=== PATIENT | male | born 1945 | race Hispanic/Latino ===

== ENCOUNTER 2018-11-15 08:05 | Day surgery (SDC) | payer OTHER ==
[2018-11-12 16:01] VITALS: BP 93/61
[2018-11-12 16:05] LABS: BASOPHILS % (AUTO) 0.5 % (0.0-5.0); EOSINOPHILS % (AUTO) 1.3 % (0.0-8.0); HEMATOCRIT 36.7 % (42-54); LYMPHOCYTES % (AUTO) 24.1 % (21.0-51.0); MEAN CORPUSCULAR HEMOGLOBIN 26.3 pg (27.0-33.0); MEAN CORPUSCULAR HGB CONC 32.9 g/dL (32.0-36.0); MEAN CORPUSCULAR VOLUME 79.8 fL (79-99); MONOCYTES % (AUTO) 8.4 % (3.0-13.0); NEUTROPHILS % (AUTO) 65.7 % (40.0-77.0); PLATELET COUNT (AUTO) 205 K/uL (130-400); RED CELL DISTRIBUTION WIDTH 15.1 % (11.0-15.5); WHITE BLOOD COUNT (AUTO) 5.3 K/uL (4.8-10.8)
[2018-11-12 16:18] LABS: ALBUMIN 3.6 g/dL (3.5-5.0); BILIRUBIN,TOTAL 0.4 mg/dL (0.2-1.0); CREATININE 1.1 mg/dL (0.5-1.5); INR 0.99 (0.85-1.15); PARTIAL THROMBOPLASTIN TIME 27.6 SEC (26.3-35.5); POTASSIUM 4.2 mmol/L (3.5-5.1); PROTHROMBIN TIME 10.4 SEC (9.6-11.6); TOTAL PROTEIN, SERUM 7.5 g/dL (6.0-8.3)
[~2018-11-15] VITALS: Ht 177.8 cm; Wt 87.6 kg
[2018-11-15] VITALS (11 sets, daily range): BP systolic 102–132; BP diastolic 64–90
[~2018-11-15 08:05] MED LIST: CEFAZOLIN SODIUM 1 GM VIAL IVP ONE; SODIUM CHLORIDE 0.9% 1000ML 1,000 ML IV SCH
[2018-11-15] MEDS ORDERED: FAMO-136 PO (09:01)
[2018-11-15] MEDS ORDERED: LISI-613 PO (09:01)
--- NOTE | 2018-11-15 09:03 | NUR ---
POTENTIAL FOR INFECTION: SHAVED UPPER CHEST TO BILATERAL NIPPLE AREA PER KELSEA BORDEN.
[2018-11-15] MEDS ORDERED: CEFAZOLIN SODIUM 1 GM VIAL ONE (09:13)
[2018-11-15] MEDS ORDERED: LACTATED RINGERS 1000ML 1,000 ML IV ONE (09:13)
[2018-11-15] MEDS ORDERED: MIDAZOLAM HCL 1 MG/ML 2ML VIAL ONE ×2 (09:25→09:28)
[2018-11-15] MEDS ORDERED: FENTANYL CITRATE PF 50 MCG/1 ML 2ML VIAL ONE (09:25)
[2018-11-15] MEDS ORDERED: BUPIVACAINE/PF 0.25% 30ML VIAL IJ ONE (09:30)
[2018-11-15] MEDS ORDERED: LIDOCAINE HCL 1% 20 ML VIAL ONE (09:30)
== END 2018-11-15 11:30 | disposition home or self-care (01) ==
LOC: DAH 08:05
PROVIDERS: ATTEND Student in an Organized Health Care Education/Training Program
DX: C18.6 Malignant neoplasm of descending colon (principal); Z93.3 Colostomy status; I10 Essential (primary) hypertension; R06.83 Snoring; Z79.01 Long term (current) use of anticoagulants; Z98.890 Other specified postprocedural states
CPT/HCPCS: 36415; 36561; 71045; 77001; 80053; 85025; 85610; 85730; 93005; A4215; A4221; A4222; A4223; A4606; A4663; A4930; A6207; C1788; J0690; J1644; J2250 ×2; J3010; J3490; J7120

== ENCOUNTER 2020-05-19 15:20 | Emergency (ER) | payer MEDICARE ==
[~2020-05-19 15:20] MED LIST changes: -CEFAZOLIN SODIUM 1 GM VIAL IVP ONE; +LISI10TA24 PO; -SODIUM CHLORIDE 0.9% 1000ML 1,000 ML IV SCH
[2020-05-19 15:36] LABS: BASOPHILS % (AUTO) 0.2 % (0.0-5.0); EOSINOPHILS % (AUTO) 0.2 % (0.0-8.0); HEMATOCRIT 41.8 % (42-54); LYMPHOCYTES % (AUTO) 12.7 % (21.0-51.0); MEAN CORPUSCULAR HEMOGLOBIN 28.5 pg (27.0-33.0); MEAN CORPUSCULAR HGB CONC 33.3 g/dL (32.0-36.0); MEAN CORPUSCULAR VOLUME 85.7 fL (79-99); MONOCYTES % (AUTO) 2.5 % (3.0-13.0); NEUTROPHILS % (AUTO) 84.2 % (40.0-77.0); PLATELET COUNT (AUTO) 206 K/uL (130-400); RED BLOOD CELL COUNT(AUTO) 4.88 MIL/uL (4.50-6.20); RED CELL DISTRIBUTION WIDTH 13.9 % (11.0-15.5); WHITE BLOOD COUNT (AUTO) 6.5 K/uL (4.8-10.8)
[2020-05-19 15:47] LABS: CREATININE 0.9 mg/dL (0.5-1.5); POTASSIUM 3.7 mmol/L (3.5-5.1)
[2020-05-19 15:49] LABS: INR 1.05 (0.85-1.15); PROTHROMBIN TIME 11.4 SEC (9.6-11.6)
[2020-05-19 15:50] LABS: PARTIAL THROMBOPLASTIN TIME 27.7 SEC (26.3-35.5)
[2020-05-19 15:51] LABS: ALBUMIN 3.4 g/dL (3.5-5.0); BILIRUBIN,TOTAL 0.6 mg/dL (0.2-1.0); TOTAL PROTEIN, SERUM 7.3 g/dL (6.0-8.3)
[2020-05-19 15:59] LABS: CREATINE KINASE, TOTAL 98 U/L (21-232); MYOGLOBIN 96 ng/mL (10-92); TROPONIN I < 0.04 ng/mL (0.00-0.06)
[2020-05-19] MEDS ORDERED: FAMOTIDINE 20MG TAB ONE (17:12)
[2020-05-19] MEDS ORDERED: 0.9%NACL 1000ML 1,000 ML IV ONE (17:30)
[2020-05-19] MEDS ORDERED: IOHEXOL-350 75 ML VIAL IV ONE (17:52)
== END 2020-05-19 19:31 | disposition home or self-care (01) ==
LOC: EDH 15:20
DX: R07.89 Other chest pain (principal); R06.6 Hiccough; C18.9 Malignant neoplasm of colon, unspecified; E86.0 Dehydration; I10 Essential (primary) hypertension; Z72.0 Tobacco use; Z79.899 Other long term (current) drug therapy
CPT/HCPCS: 36415; 71045; 71275; 80053; 82550; 83874; 84484 ×2; 85025; 85610; 85730; 93005 ×2; 96360; 96361; 99285; J7030; Q9967

== ENCOUNTER 2020-05-23 20:40 | Observation (INO) | payer MEDICARE ==
[~2020-05-23] VITALS: Ht 180.3 cm; Wt 79.4 kg
[2020-05-23] MEDS ORDERED: ONDANSETRON HCL 4 MG/2 ML VIAL ONE (20:52)
[2020-05-23 21:12] LABS: BASOPHILS % (AUTO) 0.2 % (0.0-5.0); EOSINOPHILS % (AUTO) 0.2 % (0.0-8.0); HEMATOCRIT 42.1 % (42-54); LYMPHOCYTES % (AUTO) 10.4 % (21.0-51.0); MEAN CORPUSCULAR HEMOGLOBIN 27.5 pg (27.0-33.0); MEAN CORPUSCULAR HGB CONC 32.5 g/dL (32.0-36.0); MEAN CORPUSCULAR VOLUME 84.4 fL (79-99); MONOCYTES % (AUTO) 3.2 % (3.0-13.0); NEUTROPHILS % (AUTO) 85.2 % (40.0-77.0); PLATELET COUNT (AUTO) 194 K/uL (130-400); RED BLOOD CELL COUNT(AUTO) 4.99 MIL/uL (4.50-6.20); RED CELL DISTRIBUTION WIDTH 13.6 % (11.0-15.5); WHITE BLOOD COUNT (AUTO) 6.5 K/uL (4.8-10.8)
[2020-05-23 21:25] LABS: INR 1.15 (0.85-1.15); PROTHROMBIN TIME 12.4 SEC (9.6-11.6)
[2020-05-23 21:27] LABS: PARTIAL THROMBOPLASTIN TIME 27.6 SEC (26.3-35.5)
[2020-05-23 21:29] LABS: CREATININE 0.8 mg/dL (0.5-1.5); POTASSIUM 3.5 mmol/L (3.5-5.1)
[2020-05-23] MEDS ORDERED: SODIUM CHLORIDE 0.9% 1000ML 1,000 ML IV ONE (21:31)
[2020-05-23 21:33] LABS: ALBUMIN 3.5 g/dL (3.5-5.0); BILIRUBIN,TOTAL 0.6 mg/dL (0.2-1.0); TOTAL PROTEIN, SERUM 7.6 g/dL (6.0-8.3)
[2020-05-23] MEDS ORDERED: NITROGLYCERIN 1GM/1 INCH PACKET TD ONE (22:08)
[2020-05-24 00:31] LABS: CREATINE KINASE, TOTAL 33 U/L (21-232); MYOGLOBIN 32 ng/mL (10-92); TROPONIN I < 0.04 ng/mL (0.00-0.06)
[2020-05-24] MEDS: SODIUM CHLORIDE 0.9% 1000ML 1,000 ML IV SCH ×4 (01:45→21:45)
[2020-05-24] MEDS ORDERED: ONDANSETRON HCL 4 MG/2 ML VIAL IVP PRN (01:45)
[2020-05-24] MEDS ORDERED: NITROGLYCERIN 1GM/1 INCH PACKET TD ONE (03:12)
[2020-05-24] MEDS ORDERED: NITROGLYCERIN 0.4 MG SL TAB SL ONE (03:20)
[2020-05-24 04:24] VITALS: BP 131/80
[2020-05-24] MEDS ORDERED: NITROGLYCERIN 0.4 MG SL TAB SL PRN (05:15)
[2020-05-24] MEDS ORDERED: MORPHINE SULFATE 2 MG/ML 1ML SYG IVP PRN (05:15)
[2020-05-24] MEDS ORDERED: ONDA4TAB4 PO (05:24)
[2020-05-24] MEDS ORDERED: CHLO25TA23 PO (05:30)
[2020-05-24] MEDS: NITROGLYCERIN 1GM/1 INCH PACKET TD SCH ×4 (05:41→18:00)
[2020-05-24 08:00] VITALS: BP 122/76
[2020-05-24 11:44] VITALS: BP 141/80
[2020-05-24 16:00] VITALS: BP 157/94
[2020-05-24 19:29] VITALS: BP 141/82
[2020-05-24 23:59] VITALS: BP 134/84
[2020-05-25 04:19] VITALS: BP 154/77
[2020-05-25] MEDS: SODIUM CHLORIDE 0.9% 1000ML 1,000 ML IV SCH (05:35)
[2020-05-25] MEDS: NITROGLYCERIN 1GM/1 INCH PACKET TD SCH ×3 (05:36→12:09)
[2020-05-25 08:00] VITALS: BP 154/93
[2020-05-25] MEDS: REGADENOSON 0.4 MG/5 ML PF SYG IVP SCH ×2 (10:00→14:01)
[2020-05-25 14:17] VITALS: BP 142/85
== END 2020-05-25 16:05 | disposition still patient (30) ==
LOC: EDH 20:40 → EDHIP 21:39 → INTOOBSV 21:39 → 4AH 05-24 03:02
PROVIDERS: ADMIT Internal Medicine Hematology & Oncology; ATTEND Internal Medicine Hematology & Oncology
DX: R07.89 Other chest pain (principal); Z20.822 Contact with and (suspected) exposure to COVID-19; R11.2 Nausea with vomiting, unspecified; I20.0 Unstable angina; C18.9 Malignant neoplasm of colon, unspecified; C78.6 Secondary malignant neoplasm of retroperitoneum and peritoneum; I10 Essential (primary) hypertension; Z87.891 Personal history of nicotine dependence; Z92.21 Personal history of antineoplastic chemotherapy; Z90.49 Acquired absence of other specified parts of digestive tract; Z79.899 Other long term (current) drug therapy
CPT/HCPCS: 36415; 71045; 78452; 80053; 82550; 83690; 83874; 83880; 84484 ×3; 85025; 85610; 85730; 87426; 93005 ×2; 93017; 93306; 93356; 96361 ×2; 96374; 96375; 99291; A9500 ×2; G0378 ×38; J2405 ×2; J2785; J7030 ×2; U0003

== ENCOUNTER 2020-06-09 12:19 | Inpatient (IN) | payer MEDICARE ==
[~2020-06-09] VITALS: Ht 175.3 cm; Wt 74.3 kg
[~2020-06-09 12:19] MED LIST changes: +CHLO25TA23 PO; +ONDA4TAB4 PO
[2020-06-09 12:45] LABS: BASOPHILS % (AUTO) 0.1 % (0.0-5.0); EOSINOPHILS % (AUTO) 0.1 % (0.0-8.0); HEMATOCRIT 44.5 % (42-54); LYMPHOCYTES % (AUTO) 4.3 % (21.0-51.0); MEAN CORPUSCULAR HEMOGLOBIN 28.8 pg (27.0-33.0); MEAN CORPUSCULAR VOLUME 87.3 fL (79-99); MONOCYTES % (AUTO) 5.4 % (3.0-13.0); PLATELET COUNT (AUTO) 231 K/uL (130-400); WHITE BLOOD COUNT (AUTO) 24.7 K/uL (4.8-10.8)
[2020-06-09 13:05] LABS: APPEARANCE,URINE Cloudy (CLEAR); BILIRUBIN,URINE Moderate (NEGATIVE); COLOR,URINE Dark Yellow (YELLOW); GLUCOSE, URINE (UA) Negative (NEGATIVE); KETONES,URINE >=160 mg/dL (NEGATIVE); LEUKOCYTE ESTERASE ,URINE Small (NEGATIVE); NITRATE,URINE Negative (NEGATIVE); OCCULT BLOOD,URINE Negative (NEGATIVE); PROTEIN,URINE POS 2+ mg/dL (NEGATIVE)
[2020-06-09 13:06] LABS: INR 1.19 (0.85-1.15); PARTIAL THROMBOPLASTIN TIME 23.2 SEC (26.3-35.5); PROTHROMBIN TIME 12.3 SEC (9.6-11.6)
[2020-06-09 13:13] LABS: B-TYPE NATRIURETIC PEPTIDE 241 pg/mL (0-100)
[2020-06-09 13:23] LABS: BACTERIA,URINE Rare /HPF (None Seen); MUCUS,URINE Few LPF (None Seen); RBC,URINE 0-1 /HPF (0-1); SQUAMOUS EPITHELIAL CELL,UR Rare /HPF (0-2); WBC,URINE 0-1 /HPF (0-1)
[2020-06-09] MEDS ORDERED: ONDANSETRON 4MG INJ ONE (13:32)
[2020-06-09] MEDS ORDERED: 0.9%NACL 1000ML 1,000 ML IV ONE (13:32)
[2020-06-09 13:35] LABS: ALANINE AMINOTRANSFERASE 18 U/L (12-78); ALBUMIN 3.9 g/dL (3.5-5.0); ASPARTATE AMINOTRANSFERASE 22 U/L (10-37); BILIRUBIN,TOTAL 1.1 mg/dL (0.2-1.0); CARBON DIOXIDE 31 mmol/L (21-32); CHLORIDE 100 mmol/L (101-111); CREATINE KINASE, TOTAL 72 U/L (21-232); CREATININE 1.1 mg/dL (0.5-1.5); GLOMERULAR FILTR. RATE CALC 70 mL/min (>60); GLUCOSE,RANDOM 101 mg/dL (70-105); POTASSIUM 3.7 mmol/L (3.5-5.1); SODIUM SERUM 145 mmol/L (136-145); TOTAL PROTEIN, SERUM 7.9 g/dL (6.0-8.3); UREA NITROGEN, BLOOD 17 mg/dL (7-18)
[2020-06-09 13:48] LABS: LIPASE < 50 U/L (114-286)
[2020-06-09] MEDS ORDERED: ZOSYN 3.375GM+NS 50ML 50 ML IV ONE (13:51)
[2020-06-09] MEDS ORDERED: IOHEXOL-350 75 ML VIAL IV ONE (14:33)
[2020-06-09] MEDS ORDERED: LORAZEPAM 2 MG/ML 1 ML VIAL ONE (15:41)
[2020-06-09] MEDS ORDERED: LACTATED RINGERS 1000ML 1,000 ML IV ONE ×2 (17:00→17:17)
[2020-06-09] MEDS ORDERED: ONDANSETRON 4MG INJ IVP PRN (17:00)
[2020-06-09] MEDS ORDERED: LABETALOL 20MG VIAL IV PRN (19:00)
[2020-06-09 19:01] LABS: BILIRUBIN,DIRECT 0.4 mg/dL (0.0-0.3); TOTAL PROTEIN, SERUM 7.4 g/dL (6.0-8.3)
[2020-06-09] MEDS ORDERED: PANTOPRAZOLE 40 MG/VIAL ONE (19:45)
[2020-06-09] MEDS: FAMOTIDINE 20MG VIAL IV SCH (21:00)
[2020-06-09 23:47] VITALS: BP 140/84
[2020-06-10] VITALS (32 sets, daily range): BP systolic 103–153; BP diastolic 63–92
[2020-06-10] MEDS: LEVETIRACETAM 500 MG in 0.9%NACL 100ML 100 ML IV SCH ×3 (01:31→20:33)
[2020-06-10] MEDS ORDERED: SUCR1ORA15 PO (02:00)
[2020-06-10] MEDS ORDERED: PANT40TA54 PO (02:00)
[2020-06-10] MEDS ORDERED: HYDR-4060 PO (02:00)
[2020-06-10] MEDS ORDERED: CHLO25TA23 PO (02:00)
[2020-06-10] MEDS ORDERED: ONDA4TAB4 PO (02:00)
[2020-06-10] MEDS ORDERED: ACET1TAB25 PO (02:00)
[2020-06-10] MEDS ORDERED: LACTATED RINGERS 1000ML 1,000 ML IV SCH (03:30)
[2020-06-10 06:25] LABS: BASOPHILS % (AUTO) 0.8 % (0.0-5.0); EOSINOPHILS % (AUTO) 0.3 % (0.0-8.0); HEMATOCRIT 38.8 % (42-54); LYMPHOCYTES % (AUTO) 7.7 % (21.0-51.0); MEAN CORPUSCULAR HEMOGLOBIN 28.7 pg (27.0-33.0); MEAN CORPUSCULAR HGB CONC 32.7 g/dL (32.0-36.0); MEAN CORPUSCULAR VOLUME 87.8 fL (79-99); MONOCYTES % (AUTO) 7.9 % (3.0-13.0); NEUTROPHILS % (AUTO) 80.2 % (40.0-77.0); PLATELET COUNT (AUTO) 169 K/uL (130-400); RED BLOOD CELL COUNT(AUTO) 4.42 MIL/uL (4.50-6.20); WHITE BLOOD COUNT (AUTO) 15.6 K/uL (4.8-10.8)
[2020-06-10 06:38] LABS: CREATININE 1.1 mg/dL (0.5-1.5); POTASSIUM 3.4 mmol/L (3.5-5.1)
[2020-06-10] MEDS ORDERED: DEXTROSE 5 %-0.45 % NACL 1,000 ML IV SCH (07:45)
[2020-06-10] MEDS: FAMOTIDINE 20MG VIAL IV SCH ×2 (09:25→20:33)
[2020-06-10] MEDS ORDERED: LEVETIRACETAM 500 MG in 0.9%NACL 100ML 100 ML IV SCH (11:00)
[2020-06-10] MEDS ORDERED: ZOSYN 3.375GM+NS 50ML 50 ML IV SCH (21:00)
== END 2020-06-10 21:55 | disposition short-term general hospital (02) | DRG 375 ==
LOC: EDH 12:19 → EDHIP 16:48 → 2CH 23:02
PROVIDERS: ADMIT Internal Medicine; ATTEND Internal Medicine
PROC: 0D9670Z Drainage of Stomach with Drainage Device, Via Natural or Artificial Opening (ICD-10-PCS; principal; 2020-06-09)
DX: C18.9 Malignant neoplasm of colon, unspecified (principal); C78.7 Secondary malignant neoplasm of liver and intrahepatic bile duct; D61.818 Other pancytopenia; K31.1 Adult hypertrophic pyloric stenosis; E87.0 Hyperosmolality and hypernatremia; I62.9 Nontraumatic intracranial hemorrhage, unspecified; D72.829 Elevated white blood cell count, unspecified; I10 Essential (primary) hypertension; N28.1 Cyst of kidney, acquired; Z20.822 Contact with and (suspected) exposure to COVID-19; E86.0 Dehydration; Z87.891 Personal history of nicotine dependence; Z90.49 Acquired absence of other specified parts of digestive tract; Z92.21 Personal history of antineoplastic chemotherapy; Z93.3 Colostomy status
CPT/HCPCS: 36415; 70450; 74018; 74177; 80048; 80053; 80076; 81001; 82105; 82378; 82550; 83605; 83690; 83880; 84484; 85025; 85610; 85730; 87040; 87426; 93005; C9113; G0378; J1953; J2060; J2405; J2543; J3490; J7030; J7042; J7120; Q9967; U0003

== ENCOUNTER 2021-04-11 10:11 | Emergency (ER) | payer MEDICARE ==
[~2021-04-11] VITALS: Ht 177.8 cm; Wt 79.4 kg
[~2021-04-11 10:11] MED LIST changes: -CHLO25TA23 PO
[2021-04-11 11:11] LABS: CREATININE 0.8 mg/dL (0.5-1.5); POTASSIUM 3.5 mmol/L (3.5-5.1)
[2021-04-11 11:18] LABS: ALBUMIN 3.2 g/dL (3.5-5.0); BASOPHILS % (AUTO) 0.2 % (0.0-5.0); BILIRUBIN,TOTAL 1.2 mg/dL (0.2-1.0); EOSINOPHILS % (AUTO) 1.3 % (0.0-8.0); HEMATOCRIT 44.5 % (42-54); LYMPHOCYTES % (AUTO) 11.3 % (21.0-51.0); MEAN CORPUSCULAR HEMOGLOBIN 28.9 pg (27.0-33.0); MEAN CORPUSCULAR HGB CONC 32.6 g/dL (32.0-36.0); MEAN CORPUSCULAR VOLUME 88.8 fL (79-99); MONOCYTES % (AUTO) 9.4 % (3.0-13.0); NEUTROPHILS % (AUTO) 77.6 % (40.0-77.0); PLATELET COUNT (AUTO) 196 K/uL (130-400); RED BLOOD CELL COUNT(AUTO) 5.01 MIL/uL (4.50-6.20); RED CELL DISTRIBUTION WIDTH 14.2 % (11.0-15.5); WHITE BLOOD COUNT (AUTO) 4.7 K/uL (4.8-10.8)
[2021-04-11 11:38] LABS: INR 1.18 (0.85-1.15); PROTHROMBIN TIME 12.7 SEC (9.6-11.6)
[2021-04-11 12:14] LABS: APPEARANCE,URINE Clear (CLEAR); BILIRUBIN,URINE Moderate (NEGATIVE); COLOR,URINE Dark Yellow (YELLOW); GLUCOSE, URINE (UA) Negative (NEGATIVE); KETONES,URINE >=160 mg/dL (NEGATIVE); LEUKOCYTE ESTERASE ,URINE Small (NEGATIVE); NITRATE,URINE Negative (NEGATIVE); OCCULT BLOOD,URINE Negative (NEGATIVE); PROTEIN,URINE Trace mg/dL (NEGATIVE)
[2021-04-11 12:32] LABS: BACTERIA,URINE Few /HPF (None Seen)
[2021-04-11 12:33] LABS: RBC,URINE 0-1 /HPF (0-1); SQUAMOUS EPITHELIAL CELL,UR None Seen /HPF (0-2)
[2021-04-11] MEDS ORDERED: IOHEXOL-350 75 ML VIAL IV ONE (12:33)
[2021-04-11 15:22] VITALS: BP 142/77
== END 2021-04-11 15:20 | disposition home or self-care (01) ==
LOC: EDH 10:11
DX: K43.5 Parastomal hernia without obstruction or gangrene (principal); I10 Essential (primary) hypertension; Z98.890 Other specified postprocedural states; Z79.899 Other long term (current) drug therapy
CPT/HCPCS: 36415; 74177; 80053; 81001; 83690; 84484; 85025; 85610; 85730; 93005 ×2; 99285; Q9967

== ENCOUNTER → 2021-04-18 | Outpatient (CLI) | payer MEDICARE ==
[~2021-04-18] VITALS: Ht 177.8 cm; Wt 74.9 kg
[~2021-04-18] MED LIST changes: +CEFAZOLIN SODIUM 2 GM VIAL IV SCH; +DICY20TA2 PO; +TRAM1TAB PO
[2021-04-18 12:47] LABS: BASOPHILS % (AUTO) 0.5 % (0.0-5.0); EOSINOPHILS % (AUTO) 0.8 % (0.0-8.0); LYMPHOCYTES % (AUTO) 11.1 % (21.0-51.0); MEAN CORPUSCULAR HEMOGLOBIN 29.3 pg (27.0-33.0); MEAN CORPUSCULAR VOLUME 91.5 fL (79-99); MONOCYTES % (AUTO) 8.4 % (3.0-13.0); NEUTROPHILS % (AUTO) 78.9 % (40.0-77.0); PLATELET COUNT (AUTO) 214 K/uL (130-400); RED BLOOD CELL COUNT(AUTO) 4.92 MIL/uL (4.50-6.20); RED CELL DISTRIBUTION WIDTH 14.8 % (11.0-15.5); WHITE BLOOD COUNT (AUTO) 6.7 K/uL (4.8-10.8)
[2021-04-18 12:57] LABS: CREATININE 0.8 mg/dL (0.5-1.5); POTASSIUM 4.9 mmol/L (3.5-5.1)
[2021-04-19 10:24] VITALS: BP 138/83
== END | disposition home or self-care (01) ==
LOC: EDSTATUS 09:00 → DAH 10:00 → EDSTATUS 04-24 12:00
PROVIDERS: ATTEND Student in an Organized Health Care Education/Training Program
DX: Z01.818 Encounter for other preprocedural examination (principal); K43.5 Parastomal hernia without obstruction or gangrene; I44.4 Left anterior fascicular block; Z20.822 Contact with and (suspected) exposure to COVID-19
CPT/HCPCS: 36415; 80048; 85025; 87635; 93005; A6260; C9803; J0690